=== PATIENT | female | born 1930 | race Caucasian/White ===

== ENCOUNTER 2017-11-23 22:12 | Inpatient (IN) | payer OTHER ==
[~2017-11-23] VITALS: Ht 167.6 cm; Wt 83.1 kg
[~2017-11-23 22:12] MED LIST: CALCIUM 500 +1 EAC4 PO; COQ10-VIT E 201 EACH PO; CRANBERRY500 M2 PO; FIORINAL 50-321 EACH PO; JANTOVEN5 MG PO; NOLVADEX20 MG PO; NORVASC5 MG PO; PROTONIX40 MG PO; ULTRAM50 MG PO; WOMEN'S DAILY1 EAC4 PO; XANAX0.5 MG PO; ZESTRIL40 MG PO
[2017-11-24 06:12] LABS: INTER. NORMALIZED RATIO 1.1
[2017-11-24 06:15] LABS: PTT 26.3 SEC (25-37)
[2017-11-24 06:18] VITALS: BP 126/76
[2017-11-24 14:58] VITALS: BP 142/80
[2017-11-24 19:56] VITALS: BP 137/71
[2017-11-24 23:35] VITALS: BP 132/73
[2017-11-25 03:40] VITALS: BP 112/60
[2017-11-25 08:00] VITALS: BP 134/64
[2017-11-25 16:00] VITALS: BP 163/80
[2017-11-25 18:28] LABS: HEMATOCRIT 30.5 % (36.0-46.0); MCH 32.4 PG (29.0-34.0); MCHC 32.8 G/DL (30.0-36.0); MCV 98.7 FL (83-99); PLATELET COUNT 168 K/uL (156-360); RBC DIS.WIDTH-CV 12.8 % (11.8-14.6); RBC DIS.WIDTH-SD 46.1 % (39-53); RED BLOOD COUNT 3.09 M/uL (3.80-5.20); WHITE BLOOD COUNT 11.1 K/uL (4.1-10.2)
[2017-11-25 18:46] LABS: ALBUMIN 3.5 G/DL (3.2-4.8); CHLORIDE 105 MEQ/L (99-109); POTASSIUM 4.1 MEQ/L (3.7-5.4); SODIUM 139 MEQ/L (136-147); TOTAL BILIRUBIN 0.4 MG/DL (0.0-1.0)
[2017-11-25 18:51] LABS: ALKALINE PHOSPHATASE 21 IU/L (3-129); ALT (GPT) 33 IU/L (3-49); AST (GOT) 37 IU/L (2-34); CREATININE 0.7 MG/DL (0.6-1.3); GFR ESTIMATE (CALCULATED) > 59 mL/min/; GLUCOSE 143 mg/dL (70-99); UREA NITROGEN (BUN) 17 mg/dL (9-23)
[2017-11-25 18:55] LABS: TROP-I INTERPRETATION NEGATIVE; TROPONIN-I 0.02 ng/mL (0.0-0.30)
[2017-11-25 19:43] VITALS: BP 180/96
[2017-11-26] VITALS (9 sets, daily range): BP systolic 112–183; BP diastolic 56–96
[2017-11-26 03:44] LABS: APPEARANCE CLEAR ((CLEAR)); BILIRUBIN NEGATIVE; BLOOD SMALL; COLOR YELLOW ((YELLOW)); GLUCOSE (STRIP) NEGATIVE; KETONES NEGATIVE; LEUKOCYTES SMALL; NITRITE NEGATIVE; PROTEIN (STRIP) NEGATIVE; SPECIFIC GRAVITY 1.006 (1.000-1.030); UROBILINOGEN 0.2 MG/DL (0.2-1.0)
[2017-11-26 03:50] LABS: BACTERIA 1+ /HPF; EPITHELIAL CELLS 1+ /HPF; MUCUS NONE SEEN /LPF; UCUL ADDED? YES
[2017-11-27 00:34] VITALS: BP 182/78
[2017-11-27 05:00] VITALS: BP 95/55
[2017-11-27 07:00] LABS: CHLORIDE 103 MEQ/L (99-109); CREATININE 0.8 MG/DL (0.6-1.3); GFR ESTIMATE (CALCULATED) > 59 mL/min/; POTASSIUM 4.1 MEQ/L (3.7-5.4); SODIUM 138 MEQ/L (136-147); UREA NITROGEN (BUN) 24 mg/dL (9-23)
[2017-11-27 07:04] LABS: GLUCOSE 101 mg/dL (70-99)
[2017-11-27 08:02] VITALS: BP 127/71
[2017-11-27 11:52] VITALS: BP 166/77
== END 2017-11-27 16:12 | disposition home or self-care (01) | DRG 460 ==
LOC: ENRESERV 22:12 → 3EAST 11-24 05:11 → 2SOUTH 11-24 05:11 → ENRESERV 11-24 12:01 → 3EAST 11-24 13:49
PROVIDERS: Hospitalist; Neurological Surgery
DX: T84.296A Other mechanical complication of internal fixation device of vertebrae, initial encounter (principal); M96.0 Pseudarthrosis after fusion or arthrodesis; E78.5 Hyperlipidemia, unspecified; I10 Essential (primary) hypertension; F41.9 Anxiety disorder, unspecified; M54.42 Lumbago with sciatica, left side; G89.29 Other chronic pain; R50.82 Postprocedural fever; I47.1 Supraventricular tachycardia; Z79.01 Long term (current) use of anticoagulants; Z90.10 Acquired absence of unspecified breast and nipple; Z85.3 Personal history of malignant neoplasm of breast; Z86.711 Personal history of pulmonary embolism; Z86.718 Personal history of other venous thrombosis and embolism; Z90.49 Acquired absence of other specified parts of digestive tract; Z88.0 Allergy status to penicillin; Z88.2 Allergy status to sulfonamides; Z88.8 Allergy status to other drugs, medicaments and biological substances; M48.061 Spinal stenosis, lumbar region without neurogenic claudication; M46.90 Unspecified inflammatory spondylopathy, site unspecified; M54.41 Lumbago with sciatica, right side; I48.91 Unspecified atrial fibrillation; M12.88 Other specific arthropathies, not elsewhere classified, other specified site
CPT/HCPCS: 71010; 72020; 72100; 76000; 80048; 80053; 81003; 84484; 85027; 85610; 85730; 86850; 86900; 86901; 87040; 87086; 93005; C1713; J0131; J0330; J0696; J1100; J1170; J1580; J1644; J2250; J2405; J2930; J3010; J3370; J3480; Q0175; S0020